=== PATIENT | male | born 1965 | race Hispanic/Latino ===

== ENCOUNTER 2019-10-07 08:18 | Day surgery (SDC) | payer BC ==
[~2019-10-07] VITALS: Ht 170.2 cm; Wt 85.3 kg
[~2019-10-07 08:18] MED LIST: CHLORTHALIDONE25 MG PO; LIPITOR20 MG PO; OMEPRAZOLE20 MG PO; ZYRTEC10 M3 PO
--- NOTE | 2019-10-07 11:17 | NUR ---
10/07/19 1117 Arabella Funes 1111- PT ARRIVES TO PACU AROUSABLE TO NOXIOUS STIMULI. RESP EVEN AND UNLABORED. OXYGEN SAT MID TO HIGH 90'S ON 2L VIA NC. PT UPDATED THAT HE IS IN THE RECOVERY ROOM, PT IS ABLE TO RESPOND AND FALLS RIGHT BACK TO SLEEP.
--- NOTE | 2019-10-08 15:50 | OR ---
[facility] [address] [place], [place] [address] Signed DATE OF OPERATION: 10/07/2019 SURGEON: Elicia Cox MD PREOPERATIVE DIAGNOSES: 1. Long-standing chronic reflux esophagitis. 2. History of failed TEF procedure (transesophageal fundoplication). 3. History of colon polyps x2, 2013. POSTOPERATIVE DIAGNOSES: 1. Dysmorphic failed anti-reflux procedure with mild esophagitis. 2. Very small polyp at hepatic flexure. PROCEDURES: 1. Esophagogastroduodenoscopy with biopsy. 2. Total colonoscopy to cecum with cold morcellation polypectomy x1. ANESTHESIA: Intravenous sedation, fentanyl 150 mcg, Versed 7 mg. INDICATION: This 54-year-old white man is a patient of Nathaniel Armas. 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 He is referred by Dr. Armas for consideration of upper endoscopy and colonoscopy. The patient underwent a transoral fundoplication (TEF) procedure in [place] for significant reflux problems. Long-term success was a failure unfortunately. He now takes omeprazole 40 mg daily. He also takes Tums at night due to symptoms. He avoids eating late in the evening to avoid symptoms while sleeping. He still has a sensation of "burning" in the xiphoid area. He does not have dysphagia and rare reflux. Additionally, he has undergone colonoscopy six years ago in [place] at the [facility] showing two polyps. He does have family history of colon cancer in a paternal uncle. He is admitted at this time to undergo upper endoscopy and colonoscopy. He understands the risks of bleeding, infection, and perforation. FINDINGS: Upper endoscopy showed a reasonably normal-appearing esophageal mucosa, perhaps mild distal esophagitis, but no evidence of Rodriguez's per se. Retroflexed view showed a very nonfunctional flap valve and T anchors from the prior TEF procedure. The antrum, Electronically Signed By: ELICIA COX MD 10/08/19 1550 PATIENT NAME: GRACE BAEZ OPERATIVE REPORT DATE OF : 65 REPORT #: [id number] PHYSICIAN: ELICIA COX MD PCP: GERALDINE ARMAS MD REPORT IS CONFIDENTIAL AND NOT TO BE RELEASED WITHOUT AUTHORIZATION [facility] [address] [place], [place] [address] Signed pylorus, and duodenum were reasonably normal. CLOtest was -15 minutes postprocedure. On colonoscopy, the prep was excellent. Complete colonoscopy was undertaken to the cecum without problem. There was one very small polyp at the hepatic flexure, which was excised with cold morcellation technique. The remaining colon was normal. DESCRIPTION OF PROCEDURE: The patient was brought to the endoscopy suite, given topical lidocaine spray anesthetic, placed in lateral decubitus position, given intravenous sedation to the point of slurred speech and nystagmus with full cardiopulmonary monitoring. A bite block was placed. An Olympus video upper endoscope was passed in the hypopharynx. The vocal cords appeared normal. The scope was advanced to the esophagus throughout its length, it appeared reasonably normal. The distal portion had a somewhat irregular Z-line, but no actual Rodriguez's epithelium so far as could be told. The scope passed in the stomach without problem. Excess gastric juices were suctioned free. The rugal folds were normal. The antrum in the pre-pyloric area was normal. Pylorus was normal. Scope was passed through into the duodenum, which was also normal. Biopsies were taken there to assess for celiac disease. The scope was withdrawn and retroflexed view undertaken showing a very dysmorphic and failed flap valve. Close inspection could show the T anchors in the gastric mucosa. The scope was reoriented and biopsies taken of the antrum for both ROSANA and pathologic testing. Scope was withdrawn to the distal esophagus and biopsies obtained of the distal esophageal mucosa. The midesophagus was similarly biopsied as there were some very superficial nodular changes, which were benign in appearance. Careful withdrawal of scope showed no other findings. Plans were then made for colonoscopy. Additional sedation was given. Digital rectal examination was normal. An Olympus video colonoscope was passed in the rectum and manipulated throughout the colon ultimately intubating the cecum. The ileocecal valve and appendiceal orifice were normal. The scope was withdrawn from that point and careful inspection showed no sign of abnormality into the hepatic flexure where a very small adenomatous-appearing polyp was noted. This was excised with cold morcellation technique. Further withdrawal of scope showed no other abnormality, specifically no polyps, diverticular formation, colitis, or cancer. Retroflexed view was normal. Scope was removed. The patient was taken to recovery room in good condition. CONCLUDING DIAGNOSES: 1. Mild chronic esophagitis. No evidence of Rodriguez's epithelium and dysmorphic flap valve with failed transoral fundoplication. 2. Small polyp at hepatic flexure. Electronically Signed By: ELICIA COX MD 10/08/19 7276 PATIENT NAME: GRACE BAEZ OPERATIVE REPORT DATE OF : 65 REPORT #: [id number] PHYSICIAN: ELICIA COX MD PCP: GERALDINE ARMAS MD REPORT IS CONFIDENTIAL AND NOT TO BE RELEASED WITHOUT AUTHORIZATION [place] [address] Signed PLAN: Recommend continued use of PPI medication. I would recommend repeat colonoscopy in 5 years. We will see him back in 6 weeks when the global pandemic viral problem is under better control. If he has problems in the meantime, he will let me know. MD TAMARA Velasquez/TIFFANIEL /[id number] cc: Geraldine Armas MD Copies: ~ Electronically Signed By: ELICIA COX MD 10/08/19 1550 PATIENT NAME: GRACE BAEZ OPERATIVE REPORT DATE OF : 65 REPORT #: [id number] PHYSICIAN: ELICIA COX MD PCP: GERALDINE ARMAS MD REPORT IS CONFIDENTIAL AND NOT TO BE RELEASED WITHOUT AUTHORIZATION
--- NOTE | 2019-10-11 14:43 | PATH ---
[facility] [address] [place], [place] [address] Signed SPECIMEN(S): A DUODENAL BIOPSY SPECIMEN(S): B ANTRUM/PYLORUS BIOPSY SPECIMEN(S): C ESOPHAGEAL BIOPSY, DISTAL SPECIMEN(S): D ESOPHAGEAL BIOPSY, MID SPECIMEN(S): E HEPATIC FLEXURE COLON POLYP SPECIMEN SOURCE: A. DUODENAL BIOPSY B. ANTRUM/PYLORUS BIOPSY C. ESOPHAGEAL BIOPSY, DISTAL D. ESOPHAGEAL BIOPSY, MID E. HEPATIC FLEXURE COLON POLYP CLINICAL HISTORY: Pre-op: GERD with esophagitis, history of colon polyps. Post-op: Poor flap valve, distal esophagitis, small polyp. MICROSCOPIC DESCRIPTION: Histologic sections of all submitted blocks are examined by light microscopy. These findings, together with the gross examination, support the pathologic diagnosis. FINAL PATHOLOGIC DIAGNOSIS: A. Duodenum, biopsy: - Duodenal mucosa with mild increased lamina propria chronic inflammation. - Negative for dysplasia or malignancy. B. Stomach, antrum/pylorus, biopsy: - Antral mucosa with mild reactive gastropathy. - Negative for Helicobacter organisms on HE stain. - Negative for dysplasia or malignancy. C. Esophagus, distal, biopsy: - Squamous mucosa with chronic inflammation and reactive epithelial changes, consistent with reflux esophagitis. - Negative for intestinal metaplasia, dysplasia, or malignancy. D. Esophagus, mid, biopsy: - Squamous mucosa with acute and chronic inflammation and reactive changes. - Negative for intestinal metaplasia, dysplasia, or malignancy. - See comment. E. Colon, hepatic flexure, polyp, polypectomy: - Sessile serrated adenoma/polyp. - Negative for dysplasia or malignancy. PATIENT NAME: GRACE BAEZ PATHOLOGY DATE OF : 65 REPORT #: [id number] PHYSICIAN: SIRI PATHOLOGY PCP: DARON EDWARD MD REPORT IS CONFIDENTIAL AND NOT TO BE RELEASED WITHOUT AUTHORIZATION [facility] [address] [place], [place] [address] Signed COMMENT: Sections of the mid esophageal biopsy (D) demonstrate squamous mucosa with prominent spongiosis, basal cell hyperplasia, and scattered intraepithelial lymphocytes, neutrophils, eosinophils. Intraepithelial eosinophils are not increased (up to nine seen per high power field). The findings present could represent changes secondary to reflux esophagitis. Clinical correlation is required. NAL:cml:C2NR GROSS DESCRIPTION: Five specimens are received in five containers, labeled "JM." A. The specimen, labeled "JM, 1" and "duodenal biopsy" on the requisition, is received in formalin and consists of two soft pink tissue fragments that measure 0.3 cm each and are submitted in toto in cassette (A1). B. The specimen, labeled "JM, 2" and "antrum/pylorus biopsy" on the requisition, is received in formalin and consists of two soft lopez tissue fragments that measure 0.2 and 0.3 cm and are submitted in toto in cassette (B1). C. The specimen, labeled "JM, 3" and "esophageal biopsy, distal" on the requisition, is received in formalin and consists of four soft lopez, flat tissue fragments that vary from 0.2-0.5 cm and are submitted in toto in cassette (C1). D. The specimen, labeled "JM, 4" and "esophageal biopsy, mid" on the requisition, is received in formalin and consists of three soft lopez, flat tissue fragments that vary from 0.1-0.3 cm and are submitted in toto in cassette (D1). E. The specimen, labeled "JM, 5" and "hepatic flexure colon polyp" on the requisition," is received in formalin and consists of a 0.2 x 0.1 x 0.1 cm soft lopez, smooth, polypoid portion of tissue that is submitted in toto in cassette (E1). SS (under the direct supervision of a pathologist) The Gross Description was prepared using a voice recognition system. The report was reviewed for accuracy; however, sound-alike word errors, addition and/or deletions may occur. If there is any question about this report, please contact Client Services. PERFORMING LABORATORY: The technical component was performed by [facility], [address] [place] [id number] ([employer]: Milly Cooley MD; CLIA# [id number]). Professional interpretation was performed by PATIENT NAME: GRACE BAEZ PATHOLOGY DATE OF : 65 REPORT #: [id number] PHYSICIAN: SIRI LEE PCP: DARON EDWARD MD REPORT IS CONFIDENTIAL AND NOT TO BE RELEASED WITHOUT AUTHORIZATION [facility] [address] [facility] [place], [place] [address] Signed [facility], [address] [facility]. [facility] [place], [place] [address] (CLIA# [id number]). Diagnostician: Alison Thomas MD Pathologist Electronically Signed 10/11/2019 Copies: ~ PATIENT NAME: GRACE BAEZ PATHOLOGY DATE OF : 65 REPORT #: [id number] PHYSICIAN: SIRI PATHOLOGY PCP: DARON EDWARD MD REPORT IS CONFIDENTIAL AND NOT TO BE RELEASED WITHOUT AUTHORIZATION
== END 2019-10-07 18:00 | disposition home or self-care (01) ==
LOC: OPS 08:18 → DS 08:18 → OPS 09:00 → DS 10-11 13:00
PROVIDERS: Surgery
PROC: 0DB58ZX Excision of Esophagus, Via Natural or Artificial Opening Endoscopic, Diagnostic (ICD-10-PCS; 2019-10-07)
PROC: 0DBL8ZZ Excision of Transverse Colon, Via Natural or Artificial Opening Endoscopic (ICD-10-PCS; 2019-10-07)
PROC: 0DB98ZX Excision of Duodenum, Via Natural or Artificial Opening Endoscopic, Diagnostic (ICD-10-PCS; principal; 2019-10-07 09:00)
PROC: 0DB78ZX Excision of Stomach, Pylorus, Via Natural or Artificial Opening Endoscopic, Diagnostic (ICD-10-PCS; 2019-10-07 09:00)
DX: Z12.11 Encounter for screening for malignant neoplasm of colon (principal); K63.5 Polyp of colon; K21.0 Gastro-esophageal reflux disease with esophagitis; K29.80 Duodenitis without bleeding; K31.89 Other diseases of stomach and duodenum; E78.5 Hyperlipidemia, unspecified; F32.9 Major depressive disorder, single episode, unspecified; Z98.890 Other specified postprocedural states
CPT/HCPCS: 99153; G0500; J2250; J3010

== ENCOUNTER 2023-03-27 13:01 | Day surgery (SDC) | payer BC ==
[~2023-03-27] VITALS: Ht 170.2 cm; Wt 80.9 kg
[2023-03-27 13:31] VITALS: BP 122/78
[2023-03-27] MEDS ORDERED: VALACYCLOVIR500 MG PO (13:35)
[2023-03-27] MEDS ORDERED: TADALAFIL10 MG PO (13:35)
[2023-03-27] MEDS ORDERED: ASPIRIN REGIMEN81 MG PO (13:36)
--- NOTE | 2023-03-27 13:58 | NUR ---
PT UPDATED ON WAIT TIMES FOR HIS PROCEDURE. PT IS AGREEABLE TO THIS.
--- NOTE | 2023-03-27 14:23 | NUR ---
1418-PATIENT UPDATED ON WAIT TIME. PATIENT VERBALIZED UNDERSTANDING. NO OTHER NEEDS AT THIS TIME.
--- NOTE | 2023-03-27 16:13 | NUR ---
03/27/23 1613 Deirdre Blair 1605 PT ARRIVED TO PACU AND WAKES EASILY TO VERBAL STIMULI AND DENIES CONCERNS. PT EASILY FALLS BACK TO SLEEP WITH SMALL AMOUNT OF SNORING NOTED. 1612 MD AT BEDSIDE TALKING TO PT.
[2023-03-27 16:56] VITALS: BP 114/76
--- NOTE | 2023-03-29 10:44 | OR ---
[facility] [address] [place], [place] [address] Signed DATE OF OPERATION: 03/27/2023 SURGEON: Elicia Cox MD PREOPERATIVE DIAGNOSIS: Persistent right flank pain. CT scan finding showing "dilated terminal ileum and thickening of mucosa." POSTOPERATIVE DIAGNOSES: 1. Adenomatous polyp at hepatic flexure (excised). 2. Normal ileocecal valve and terminal ilium. PROCEDURES: 1. Total colonoscopy to cecum with intubation of the ileum. Biopsies of ileum and ileocecal valve. 2. Cold snare polypectomy x1, hepatic flexure polyp. ANESTHESIA: Intravenous sedation; fentanyl 100 mcg and Versed 7 mg. INDICATION: This 58-year-old white man is a patient of Geraldine Armas MD. He has had right lower flank pain. A CT scan was performed which incidentally showed some mild dilation of the terminal ileum at 3.5 cm and thickening of the soft tissue in the region. Concern is maintained for neoplasm, obstruction, or perhaps inflammatory bowel disease. Notably, he does not have blood per rectum or diarrhea. He has undergone colonoscopy in the past showing polyps, this was in [place]. He has no family history of colon cancer that he is aware of. He is admitted at this time to undergo colonoscopy with intubation of the ileum, better assessment of the terminal ileum and ileocecal valve based on the CT scan. He understands the risk of bleeding, infection, and perforation related to colonoscopy and wished to proceed. FINDINGS: The prep was quite good. Complete colonoscopy was undertaken of the cecum with easy intubation of the ileum. The ileum was passed several cm at least 10 possibly more. Terminal ileum was clinically and endoscopically normal. Biopsies were taken nevertheless. The ileocecal valve was similarly normal. Appendiceal orifice was widely patent and easily observed and normal. There was a small adenomatous polyp at the hepatic flexure, which was excised with cold snare technique. The remaining colon was normal. Electronically Signed By: ELICIA COX MD 03/29/23 1044 PATIENT NAME: GRACE BAEZ OPERATIVE REPORT DATE OF : 65 REPORT #: [id number] PHYSICIAN: ELICIA COX MD PCP: GERALDINE ARMAS MD REPORT IS CONFIDENTIAL AND NOT TO BE RELEASED WITHOUT AUTHORIZATION [facility] [address] [place], [place] [address] Signed DESCRIPTION OF PROCEDURE: The patient was brought to the endoscopy suite and placed in the lateral decubitus position, given intravenous sedation to the point of slurred speech and nystagmus. Digital rectal examination was normal. The Olympus video colonoscope was passed in the rectum and manipulated throughout the colon ultimately intubating the hepatic flexure. A small adenomatous polyp was noted there. This was excised with cold snare technique and the specimen passed for pathology. Scope was advanced further and the ileocecal valve and appendiceal orifice was well identified. Manipulation of the ileocecal valve was not difficult. The scope was passed several cm at least 10 into the terminal ileum. The ileum appeared normal. Mucosa had well-preserved villi. Biopsies were taken of his including the terminal ileum at the ileocecal junction. The scope was withdrawn ultimately to the cecum. The scope was carefully withdrawn and remaining examination throughout the colon and rectum was normal. Retroflexed view was normal as well. Scope was removed and the patient was taken to the recovery room in good condition. CONCLUDING DIAGNOSES: 1. No evidence of lesion to account for CT findings of the ileum, ileocecal valve, or right colon. 2. Polyp excised. PLAN: Recommend repeat colonoscopy in 5 years based on the polyp found. He will return to the ongoing care of Geraldine Armas MD. Elicia Cox MD /TIFFANIEL /[id number] cc: Geraldine Armas MD Electronically Signed By: ELICIA COX MD 03/29/23 1044 PATIENT NAME: GRACE BAEZ OPERATIVE REPORT DATE OF : 65 REPORT #: [id number] PHYSICIAN: ELICIA COX MD PCP: GERALDINE ARMAS MD REPORT IS CONFIDENTIAL AND NOT TO BE RELEASED WITHOUT AUTHORIZATION [facility] [address] [facility] [place], [place] [address] Signed Copies: ~ Electronically Signed By: ELICIA COX MD 03/29/23 1044 PATIENT NAME: GRACE BAEZ OPERATIVE REPORT DATE OF : 65 REPORT #: [id number] PHYSICIAN: ELICIA COX MD PCP: GERALDINE ARMAS MD REPORT IS CONFIDENTIAL AND NOT TO BE RELEASED WITHOUT AUTHORIZATION
--- NOTE | 2023-04-01 11:38 | PATH ---
[facility] [address] [place], [place] [address] Signed SPECIMEN(S): A HEPATIC FLEXURE COLON POLYP SPECIMEN(S): B ILEUM BIOPSY SPECIMEN(S): C ILEOCECAL VALVE BIOPSY SPECIMEN SOURCE: A. HEPATIC FLEXURE COLON POLYP B. ILEUM BIOPSY C. ILEOCECAL VALVE BIOPSY CLINICAL HISTORY: Colon surveillance for bowel thickening near ileocecal valve. Post-op: polyp x1, normal ileum. FINAL PATHOLOGIC DIAGNOSIS: A. Hepatic flexure polyp, biopsy: - Tubular adenoma. B. Ileum, biopsies: - Benign ileal mucosa, negative for active ileitis, granulomas or dysplasia. C. Ileocecal valve, biopsy: - Unremarkable ileal mucosa, negative for active ileitis, granulomas or dysplasia. AMB MICROSCOPIC EXAMINATION: Histologic sections of all submitted blocks are examined by light microscopy. These findings, together with the gross examination, support the pathologic diagnosis. AMB GROSS DESCRIPTION: A. The specimen, labeled and designated "Mercy Baez, colon, hepatic flexure polypectomy," is received in formalin and consists of one lopez-brown soft polypoid tissue fragment measuring 0.3 x 0.4 cm and is submitted entirely in (A1). B. The specimen, labeled and designated "Meryc Baez, ileum (NOS) biopsy," is received in formalin and consists of two lopez-brown soft tissue fragments measuring 0.4 x 0.5 cm in greatest dimension, specimens are submitted entirely in (B1). C. The specimen, labeled and designated "Jackie, J, ileocecal valve biopsy," is received in formalin and consists of one lopez-brown soft tissue fragment measuring 0.3 x 0.4 cm and is submitted entirely in PATIENT NAME: GRACE BAEZ PATHOLOGY DATE OF : 65 REPORT #: [id number] PHYSICIAN: SIRI LEE PCP: DARON EDWARD MD REPORT IS CONFIDENTIAL AND NOT TO BE RELEASED WITHOUT AUTHORIZATION [facility] [address] [place], [place] [address] Signed (C1). MMA (under the direct supervision of a pathologist) The Gross Description was prepared using a voice recognition system. The report was reviewed for accuracy; however, sound-alike word errors, addition and/or deletions may occur. If there is any question about this report, please contact Client Services. ADDITIONAL NOTES: Immunohistochemical and/or in situ hybridization studies if performed in this case included appropriate positive controls that reacted as expected. This test was developed and its performance characteristics determined by [facility]. It has not been cleared or approved by the U.S. Food and Drug Administration. The FDA has determined that such clearance or approval is not necessary. This test is used for clinical purposes. It should not be regarded as investigational or for research. [facility] is certified under the Clinical Laboratory Improvement Amendments of 1988 (CLIA) as qualified to perform high complexity clinical laboratory testing. PERFORMING LABORATORY: Technical component was performed by [facility], [address] [place] [address] (CLIA# [id number]). Professional interpretation was performed by [facility] [address] [place] [id number] Diagnostician: Milly Cooley MD Pathologist Electronically Signed 04/01/2023 Copies: ~ PATIENT NAME: GRACE BAEZ PATHOLOGY DATE OF : 65 REPORT #: [id number] PHYSICIAN: SIRI LEE PCP: DARON EDWARD MD REPORT IS CONFIDENTIAL AND NOT TO BE RELEASED WITHOUT AUTHORIZATION
== END 2023-03-27 16:46 | disposition home or self-care (01) ==
LOC: OPS 13:01 → DS 13:01 → OPS 13:45
PROVIDERS: ATTEND Surgery
PROC: 0DBL8ZZ Excision of Transverse Colon, Via Natural or Artificial Opening Endoscopic (ICD-10-PCS; principal; 2023-03-27 13:45)
DX: D12.3 Benign neoplasm of transverse colon (principal); I10 Essential (primary) hypertension; K21.9 Gastro-esophageal reflux disease without esophagitis
CPT/HCPCS: 99153; G0500; J2250; J3010; J7121